=== PATIENT | male | born 1935 | race Caucasian/White ===

== ENCOUNTER 2018-04-11 23:55 | Inpatient (IN) ==
[2018-04-11] MEDS ORDERED: Diphtheria/Tetanus/Pertussis Vaccine Inj 0.5 ML Syringe IM ONE (23:59)
[2018-04-12] MEDS ORDERED: SODIUM CHLORIDE IV.SIG SCH ×2
[2018-04-12] MEDS ORDERED: CEFAZOLIN IV.SIG SCH ×2
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
[2018-04-12 00:19] LABS: Baso # (Auto) 0.2 th/mm3 (0.0-0.2); Baso % (Auto) 0.7 % (0.0-2.0); Eos # (Auto) 0.7 th/mm3 (0.0-0.4); Eos % (Auto) 2.7 % (0.0-4.0); Hematocrit 34.8 % (39.0-51.0); Hemoglobin 11.4 gm/dL (13.0-17.0); Lymph # (Auto) 1.5 th/mm3 (1.0-4.8); Mean Corpuscular HGB Conc 32.8 % (32.0-36.0); Mean Corpuscular Hemoglobin 25.1 pg (27.0-34.0); Mean Corpuscular Volume 76.4 fL (80.0-100.0); Mean Platelet Volume 8.1 fL (7.0-11.0); Mono % (Auto) 11.8 % (0.0-8.0); Neut # (Auto) 20.1 th/mm3 (1.8-7.7); Neut % (Auto) 78.8 % (16.0-70.0); Platelet Count 448 th/mm3 (150-450); Red Blood Count 4.56 mil/mm3 (4.50-5.90); Red Cell Distribution Width 15.4 % (11.6-17.2); White Blood Count 25.5 th/mm3 (4.0-11.0)
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
[2018-04-12 00:28] LABS: Activated Partial Thrombo Time 22.6 sec (24.3-30.1); INR 1.1 Ratio; Prothrombin Time 11.3 sec (9.8-11.6)
[2018-04-12] MEDS ORDERED: HYDROmorphone PF Inj 2 MG/ML Vial IV.PUSH PRN (00:34)
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
[2018-04-12] MEDS: Sod Chloride 0.9% Inj 1,000 ML IV.CONT SCH ×2 (00:49→14:05)
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
[2018-04-12] MEDS ORDERED: Chlorhexidine Gluconate 2% 1 Pack (2 Cloths) TOPICAL PRN (04:00)
[2018-04-12] MEDS: Chlorhexidine Gluconate 2% 1 Pack (2 Cloths) TOPICAL SCH (05:49)
[2018-04-12] MEDS: Docusate Sodium 100 MG Capsule PO SCH ×2 (08:19→22:56)
[2018-04-12] MEDS ORDERED: niCARdipine Inj 25 MG/10 ML Vial ONE (09:28)
[2018-04-12] MEDS ORDERED: Thrombin Topical Soln 5,000 UNIT Vial TOPICAL ONE (09:42)
[2018-04-12] MEDS ORDERED: Lidocaine 1%/Epinephrine 1:100,000 Inj 20 ML Vial ONE (09:42)
[2018-04-12] MEDS ORDERED: Furosemide Inj 0 ML ONE (09:42)
[2018-04-12] MEDS ORDERED: Gelatin Size 100 Topical Foam ONE (09:42)
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
[2018-04-12] MEDS ORDERED: Phenylephrine/NS 1000 MCG/10ML Syringe IV.PUSH ONE (10:15)
[2018-04-12] MEDS ORDERED: Neostigmine Inj 5 MG/5 ML Syringe IV.PUSH ONE (10:15)
[2018-04-12] MEDS ORDERED: Bisacodyl 10 MG Supp RECTAL PRN (10:43)
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
[2018-04-12] MEDS ORDERED: Morphine Inj 4 MG/ML Vial IV.PUSH PRN (12:00)
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
[2018-04-12] MEDS ORDERED: Propofol Inj 500 MG/50 ML Vial ONE (13:13)
[2018-04-12] MEDS ORDERED: fentaNYL Citrate Inj 100 MCG/2 ML Ampul ONE (13:19)
[2018-04-12 13:51] LABS: Hematocrit 31.1 % (39.0-51.0); Mean Corpuscular HGB Conc 32.3 % (32.0-36.0); Mean Corpuscular Hemoglobin 24.9 pg (27.0-34.0); Mean Corpuscular Volume 77.2 fL (80.0-100.0); Platelet Count 403 th/mm3 (150-450); Red Blood Count 4.02 mil/mm3 (4.50-5.90); Red Cell Distribution Width 15.4 % (11.6-17.2); White Blood Count 22.6 th/mm3 (4.0-11.0)
[2018-04-12 14:23] LABS: Anion Gap 7 meq/L (5-15); Blood Urea Nitrogen 14 mg/dL (7-18); Calcium 8.1 mg/dL (8.5-10.1); Carbon Dioxide 28.4 meq/L (21.0-32.0); Chloride 105 meq/L (98-107); Glomerular Filtration Rate Greater Than 89 mL/min (>89); Glucose,Random 135 mg/dL (74-106); Potassium 4.4 meq/L (3.5-5.1); Sodium 140 meq/L (136-145)
[2018-04-12 14:25] LABS: Magnesium 1.9 mg/dL (1.5-2.5)
--- NOTE | 2018-04-12 14:40 | XR ---
EXAM DATE: 04/12/2018 2:31 PM EDT AGE/SEX: 89 years / Male INDICATIONS: Endotracheal tube placement. CLINICAL DATA: This is the patient's subsequent encounter. Patient reports that signs and symptoms h ave been present for 2 days and indicates a pain score of Nonresponsive. MEDICAL/SURGICAL HISTORY: Non-responsive. Non-responsive. COMPARISON: [facility] [place], CHEST 1V SINGLE AP, 04/11/2018. . FINDINGS: Endotracheal tube is present with tip 9 cm above the awa. Coarse bilateral infiltrates are again n oted most confluent in the left lung base and slightly worse than on previous exam. Cardiac contours are grossly unchanged. CONCLUSION: ET tube tip is a bit high. Worsening aeration, particularly in the left base. Electronically signed by: Zak Lamas MD 04/12/2018 2:38 PM EDT
[2018-04-12] MEDS ORDERED: RASS Change Order OTHER ONE (17:00)
[2018-04-12] MEDS: Oral Hygiene Kit OROPHARYNG SCH (17:04)
[2018-04-12] MEDS: Pantoprazole Inj 40 MG Vial IV.PUSH SCH (17:21)
[2018-04-12] MEDS: ceFAZolin Inj 2,000 MG in Sodium Chlor 0.9% Inj 100 ML IV.SIG SCH ×2 (17:22→23:47)
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
[2018-04-12] MEDS: Chlorhexidine 0.12% Oral Kit 15 ML UDC OROPHARYNG SCH (22:56)
[2018-04-12] MEDS: Senna/Docusate Sodium 8.6/50 MG Tablet PO SCH (22:57)
[2018-04-13] MEDS: Sod Chloride 0.9% Inj 1,000 ML IV.CONT SCH ×3 (00:32→18:14)
[2018-04-13] MEDS: Oral Hygiene Kit OROPHARYNG SCH ×4 (00:32→16:31)
[2018-04-13] MEDS: Propofol 1000 mg/100 ml Inj 1,000 MG/100 ML BOTTLE IV.CONT PRN ×3 (01:24→21:07)
--- NOTE | 2018-04-13 04:06 | XR ---
EXAM DATE: 04/13/2018 3:59 AM EDT AGE/SEX: 89 years / Male INDICATIONS: Follow up trauma. CLINICAL DATA: This is the patient's subsequent encounter. Patient reports that signs and symptoms h ave been present for 2 days and indicates a pain score of Nonresponsive. MEDICAL/SURGICAL HISTORY: Chronic obstructive pulmonary disease. None. COMPARISON: [facility], CHEST 1V SINGLE AP, 04/12/2018. . FINDINGS: ET tube tip well above the awa. Gastric tube traverses the [id number]. Patchy infiltrates in th e central lower lungs, slightly improving left lower lung compared to yesterday. Both hemidiaphragms well delineated. The heart is normal in size. CONCLUSION: 1. ET tube in good position. 2. Slight improvement in left basilar infiltrate. Electronically signed by: Petey Velasquez MD 04/13/2018 4:04 AM EDT
[2018-04-13] MEDS: Chlorhexidine Gluconate 2% 1 Pack (2 Cloths) TOPICAL SCH (04:21)
[2018-04-13] MEDS: Norepinephrine Inj 4 MG in Sodium Chlor 0.9% Inj 246 ML IV.SIG PRN ×2 (05:06→16:33)
[2018-04-13 05:41] LABS: Baso % (Auto) 0.1 % (0.0-2.0); Hematocrit 27.8 % (39.0-51.0); Hemoglobin 8.9 gm/dL (13.0-17.0); Lymph # (Auto) 0.8 th/mm3 (1.0-4.8); Lymph % (Auto) 3.3 % (9.0-44.0); Mean Corpuscular HGB Conc 32.2 % (32.0-36.0); Mean Corpuscular Hemoglobin 24.8 pg (27.0-34.0); Mean Corpuscular Volume 76.9 fL (80.0-100.0); Mean Platelet Volume 8.2 fL (7.0-11.0); Mono # (Auto) 3.9 th/mm3 (0.0-0.9); Neut # (Auto) 19.9 th/mm3 (1.8-7.7); Neut % (Auto) 80.6 % (16.0-70.0); Platelet Count 375 th/mm3 (150-450); Red Blood Count 3.61 mil/mm3 (4.50-5.90); Red Cell Distribution Width 15.4 % (11.6-17.2); White Blood Count 24.7 th/mm3 (4.0-11.0)
[2018-04-13] MEDS ORDERED: Sodium Bicarbonate 8.4% Inj 50 MEQ/50 ML Syringe ONE (05:41)
[2018-04-13] MEDS ORDERED: WATER ONE (05:41)
[2018-04-13] MEDS ORDERED: DEXTROSE 50% ONE (05:41)
[2018-04-13 05:55] LABS: Anion Gap 9 meq/L (5-15); Blood Urea Nitrogen 15 mg/dL (7-18); Calcium 7.8 mg/dL (8.5-10.1); Carbon Dioxide 29.1 meq/L (21.0-32.0); Chloride 104 meq/L (98-107); Glomerular Filtration Rate Greater Than 89 mL/min (>89); Glucose,Random 127 mg/dL (74-106); Phosphorus 2.6 mg/dL (2.5-4.9); Potassium 4.2 meq/L (3.5-5.1); Sodium 142 meq/L (136-145)
[2018-04-13 06:46] LABS: ABG PCO2 45 mmHg (38-42); ABG PO2 146 mmHg (61-120)
[2018-04-13] MEDS: ceFAZolin Inj 2,000 MG in Sodium Chlor 0.9% Inj 100 ML IV.SIG SCH (08:00)
[2018-04-13] MEDS: Docusate Sodium 100 MG Capsule PO SCH ×2 (08:02→21:12)
[2018-04-13] MEDS: Chlorhexidine 0.12% Oral Kit 15 ML UDC OROPHARYNG SCH ×2 (08:02→21:08)
[2018-04-13] MEDS: Senna/Docusate Sodium 8.6/50 MG Tablet PO SCH ×2 (08:02→21:12)
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
[2018-04-13] MEDS ORDERED: Sod Chloride 0.9% Inj 1,000 ML IV.SIG ONE (13:21)
[2018-04-13] MEDS ORDERED: Lidocaine PF 1% Inj 5 ML Syringe INFILTRATN ONE (13:21)
[2018-04-13] MEDS ORDERED: Glycopyrrolate Inj 1 MG/5 ML Syringe IV.PUSH ONE (13:21)
[2018-04-13] MEDS ORDERED: Phenylephrine/NS 1000 MCG/10ML Syringe IV.PUSH ONE (13:21)
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
[2018-04-13] MEDS: Pantoprazole Inj 40 MG Vial IV.PUSH SCH (13:42)
--- NOTE | 2018-04-13 13:43 | ECG ---
Date Performed: 04/12/2018 Time Performed: 13:34:50 PTAGE: 89 years EKG: Sinus rhythm with PVC(s). Rightward axis rSr'(V1) - probable normal variant Lateral ST-T changes may be due to my ocardial ischemia Abnormal ECG NO PREVIOUS TRACING DOCTOR: Hui Palacio Interpretating Date/Time 04/13/2018 13:41:57
[2018-04-13] MEDS ORDERED: Lidocaine 1%/Epinephrine 1:100,000 Inj 30 ML Vial ONE (14:01)
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
--- NOTE | 2018-04-13 15:19 | P.PN ---
Subjective Interval history: s/p enucleation of right eye. Physical Exam Vital signs: Vital Signs 04/12/18 16:00 04/12/18 16:52 04/12/18 19:00 Temperature 99.8 F H Pulse Rate 60 Respiratory Rate 16 15 Blood Pressure 122/56 L Pulse Oximetry 100 100 100 04/12/18 20:00 04/12/18 21:02 04/12/18 22:00 Temperature 99.7 F H Pulse Rate 70 84 Respiratory Rate 14 15 Blood Pressure 128/60 Pulse Oximetry 100 100 04/12/18 23:00 04/12/18 23:52 04/13/18 00:00 Temperature 99.5 F Pulse Rate 59 L Respiratory Rate 15 15 Blood Pressure 128/93 H Pulse Oximetry 100 100 100 04/13/18 01:00 04/13/18 02:00 04/13/18 03:00 Temperature Pulse Rate 60 Respiratory Rate Blood Pressure Pulse Oximetry 100 100 04/13/18 04:00 04/13/18 06:00 04/13/18 07:58 Temperature 99.9 F H Pulse Rate 60 58 L Respiratory Rate 14 14 Blood Pressure 114/46 L Pulse Oximetry 100 100 04/13/18 08:00 04/13/18 09:27 04/13/18 10:00 Temperature 99.9 F H Pulse Rate 64 74 64 Respiratory Rate 14 17 Blood Pressure 111/56 L Pulse Oximetry 100 04/13/18 11:59 04/13/18 12:00 04/13/18 13:00 Temperature 98.6 F Pulse Rate 59 L Respiratory Rate 15 14 Blood Pressure 113/58 L Pulse Oximetry 100 100 100 04/13/18 13:38 Temperature Pulse Rate Respiratory Rate Blood Pressure Pulse Oximetry 100 Intake & Output 04/12/18 04/13/18 04/13/18 18:59 06:59 18:59 Intake Total 2220 / 2220 2120 / 2120 220 / 220 Output Total 1050 / 1050 1060 / 1060 Balance 1170 / 1170 1060 / 1060 220 / 220 Weight 68.4 kg Intake: IV 1220 / 1220 2120 / 2120 220 / 220 NS + KCl 20 mEq Inj 1,000 ML @ 1000 / 1000 100 mls/hr IV.CONT .Q10H [facility] Rx #:[id number] Diprivan 1000 mg/100 ml Inj 1, 100 / 100 000 mg In 100 ml @ 5 MCG/KG/MIN 2.022 mls/hr IV.CONT TITRATE PRN Rx#:[id number] NS Inj 1,000 ML @ 100 mls/hr IV 1000 / 1000 1000 / 1000 .CONT .Q10H [facility] Rx#:[id number] Ancef Inj 1,000 MG In NS Inj 100 / 100 100 ML @ 200 mls/hr IV.SIG Q8H [facility] Rx#:[id number] Ancef Inj 2,000 MG In NS Inj 120 / 120 120 / 120 120 / 120 100 ML @ 240 mls/hr IV.SIG Q8H [facility] Rx#:[id number] Oral 0 / 0 Anesthesia Amount 1000 / 1000 Output: Estimated Blood Loss 100 / 100 Urine Amount (Catheter) 950 / 950 775 / 775 Indwelling Urethral Catheter 950 / 950 775 / 775 Gastric Drainage 200 / 200 Orogastric Tube 200 / 200 Wound Drainage 85 / 85 # 1 Right Head YUDELKA Drain 40 / 40 # 2 Right Head YUDELKA Drain 45 / 45 Other: Date of Last Bowel Movement 04/10/18 04/10/18 04/10/18 - Detailed Eye Exam Comments: Eye patch and shield over right eye - Urinary Catheter Management Indwelling Urethral Catheter Cath placed during this visit: yes Reason for continuing: Hourly intake/output Insertion date: 04/12/18 Insertion time: 10:15 Results - Labs CBC & Chem 7: 04/13/18 05:20 04/13/18 05:20 Laboratory Results - last 24 hr 04/13/18 04/13/18 04/13/18 05:20 05:20 06:36 WBC 24.7 H RBC 3.61 L Hgb 8.9 L Hct 27.8 L MCV 76.9 L MCH 24.8 L MCHC 32.2 RDW 15.4 Plt Count 375 MPV 8.2 Prelim Diff (Auto) Slide review pending Neut % (Auto) 80.6 H Lymph % (Auto) 3.3 L [place] % (Auto) 16.0 H Eos % (Auto) 0.0 Baso % (Auto) 0.1 Neut # (Auto) 19.9 H Lymph # (Auto) 0.8 L [place] # (Auto) 3.9 H Eos # (Auto) 0.0 Baso # (Auto) 0.0 WBC Differential . Diff Scan Auto diff confirmed Differential Comment . Puncture Site [place] Patient Temperature 98.6 O2 Saturation 97 ABG pH 7.43 H ABG pCO2 45 H ABG pO2 146 H ABG HCO3 29 H ABG O2 Content 12.6 ABG Base Excess 5.0 H ABG Methemoglobin 1.1 Hemoglobin 9.0 L Carboxyhemoglobin 1.5 O2 Delivery Device Vent Vent Setting See comments Inspired O2 40 Critical Value No Sodium 142 Potassium 4.2 Chloride 104 Carbon Dioxide 29.1 Anion Gap 9 BUN 15 Creatinine 0.59 L Estimated GFR Greater than 89 Random Glucose 127 H Calcium 7.8 L Phosphorus 2.6 - Imaging Impressions Chest X-Ray 04/13/18 06:00 CONCLUSION: 1. ET tube in good position. 2. Slight improvement in left basilar infiltrate. 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 Keep eye patch/shield over right eye.
[2018-04-14] MEDS: Oral Hygiene Kit OROPHARYNG SCH ×4 (00:56→15:27)
[2018-04-14] MEDS: Sod Chloride 0.9% Inj 1,000 ML IV.CONT SCH (03:02)
[2018-04-14] MEDS: Propofol 1000 mg/100 ml Inj 1,000 MG/100 ML BOTTLE IV.CONT PRN ×3 (04:00→20:18)
[2018-04-14] MEDS: Chlorhexidine Gluconate 2% 1 Pack (2 Cloths) TOPICAL SCH (04:01)
[2018-04-14 04:22] LABS: Hematocrit 25.4 % (39.0-51.0); Hemoglobin 8.2 gm/dL (13.0-17.0); Mean Corpuscular HGB Conc 32.3 % (32.0-36.0); Mean Corpuscular Hemoglobin 24.7 pg (27.0-34.0); Mean Corpuscular Volume 76.6 fL (80.0-100.0); Mean Platelet Volume 8.1 fL (7.0-11.0); Platelet Count 350 th/mm3 (150-450); Red Blood Count 3.32 mil/mm3 (4.50-5.90); Red Cell Distribution Width 15.5 % (11.6-17.2); White Blood Count 21.8 th/mm3 (4.0-11.0)
[2018-04-14 04:53] LABS: Alanine Aminotransferase 13 U/L (12-78); Albumin 2.2 g/dL (3.4-5.0); Anion Gap 7 meq/L (5-15); Aspartate Aminotransferase 15 U/L (15-37); Blood Urea Nitrogen 16 mg/dL (7-18); Calcium 7.8 mg/dL (8.5-10.1); Carbon Dioxide 30.8 meq/L (21.0-32.0); Chloride 103 meq/L (98-107); Glomerular Filtration Rate Greater Than 89 mL/min (>89); Glucose,Random 107 mg/dL (74-106); Potassium 4.1 meq/L (3.5-5.1); Sodium 141 meq/L (136-145)
[2018-04-14 04:55] LABS: Alkaline Phosphatase 57 U/L (45-117); Total Protein 6.1 g/dL (6.4-8.2)
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
[2018-04-14 06:35] LABS: ABG PCO2 43 mmHg (38-42); ABG PO2 92 mmHg (61-120)
[2018-04-14 08:13] LABS: Lymphocytes 2 % (9-44); Monocytes 2 % (0-8)
[2018-04-14 08:14] LABS: Acanthocytes Occ; Platelet Estimate Normal (Normal); Platelet Morphology Normal (Normal)
[2018-04-14] MEDS: Chlorhexidine 0.12% Oral Kit 15 ML UDC OROPHARYNG SCH ×2 (08:48→20:05)
[2018-04-14] MEDS: Docusate Sodium 100 MG Capsule PO SCH ×2 (08:48→20:18)
[2018-04-14] MEDS: Senna/Docusate Sodium 8.6/50 MG Tablet PO SCH ×2 (08:48→20:18)
[2018-04-14] MEDS: fentaNYL 10 mcg/mL Premix Drip 2,500 MCG/250 ML BAG IV.SIG PRN (09:11)
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
[2018-04-14] MEDS: Pantoprazole Inj 40 MG Vial IV.PUSH SCH (13:36)
[2018-04-15 04:06] LABS: Baso # (Auto) 0.1 th/mm3 (0.0-0.2); Baso % (Auto) 0.4 % (0.0-2.0); Eos % (Auto) 0.1 % (0.0-4.0); Hemoglobin 8.4 gm/dL (13.0-17.0); Lymph # (Auto) 0.6 th/mm3 (1.0-4.8); Mean Corpuscular HGB Conc 33.4 % (32.0-36.0); Mean Corpuscular Hemoglobin 25.2 pg (27.0-34.0); Mean Corpuscular Volume 75.3 fL (80.0-100.0); Mean Platelet Volume 8.3 fL (7.0-11.0); Mono # (Auto) 2.1 th/mm3 (0.0-0.9); Mono % (Auto) 11.4 % (0.0-8.0); Neut # (Auto) 15.8 th/mm3 (1.8-7.7); Neut % (Auto) 85.1 % (16.0-70.0); Platelet Count 321 th/mm3 (150-450); Red Blood Count 3.32 mil/mm3 (4.50-5.90); Red Cell Distribution Width 15.6 % (11.6-17.2); White Blood Count 18.6 th/mm3 (4.0-11.0)
[2018-04-15] MEDS: Oral Hygiene Kit OROPHARYNG SCH ×4 (04:23→16:26)
[2018-04-15] MEDS: Chlorhexidine Gluconate 2% 1 Pack (2 Cloths) TOPICAL SCH (04:24)
[2018-04-15] MEDS: Propofol 1000 mg/100 ml Inj 1,000 MG/100 ML BOTTLE IV.CONT PRN ×2 (04:24→18:00)
[2018-04-15 04:54] LABS: Alanine Aminotransferase 30 U/L (12-78); Albumin 2.1 g/dL (3.4-5.0); Alkaline Phosphatase 104 U/L (45-117); Anion Gap 6 meq/L (5-15); Aspartate Aminotransferase 43 U/L (15-37); Blood Urea Nitrogen 20 mg/dL (7-18); Calcium 7.8 mg/dL (8.5-10.1); Carbon Dioxide 33.6 meq/L (21.0-32.0); Chloride 101 meq/L (98-107); Glomerular Filtration Rate Greater Than 89 mL/min (>89); Glucose,Random 113 mg/dL (74-106); Potassium 3.8 meq/L (3.5-5.1); Sodium 141 meq/L (136-145)
[2018-04-15 05:40] LABS: ABG Base Excess 8.3 mmol/L (-2-2); ABG PCO2 48 mmHg (38-42); ABG PO2 76 mmHg (61-120)
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
[2018-04-15] MEDS: Senna/Docusate Sodium 8.6/50 MG Tablet PO SCH ×2 (08:24→20:00)
[2018-04-15] MEDS: Docusate Sodium 100 MG Capsule PO SCH ×2 (08:24→20:00)
[2018-04-15] MEDS: Chlorhexidine 0.12% Oral Kit 15 ML UDC OROPHARYNG SCH ×2 (08:24→21:29)
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
[2018-04-15] MEDS ORDERED: levETIRAcetam 500mg/100mL Inj 100 ML IV.SIG SCH (12:00)
[2018-04-15] MEDS: Pantoprazole Inj 40 MG Vial IV.PUSH SCH (13:08)
[2018-04-15] MEDS: Sod Chloride 0.9% Inj 1,000 ML IV.CONT SCH (18:02)
[2018-04-15] MEDS: fentaNYL 10 mcg/mL Premix Drip 2,500 MCG/250 ML BAG IV.SIG PRN (20:04)
[2018-04-16] MEDS: Oral Hygiene Kit OROPHARYNG SCH ×4 (00:39→19:41)
[2018-04-16] MEDS: Acetaminophen 325 MG Tablet PO PRN ×2 (01:06→20:25)
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
[2018-04-16 05:43] LABS: Baso % (Auto) 0.1 % (0.0-2.0); Eos % (Auto) 0.2 % (0.0-4.0); Hematocrit 24.1 % (39.0-51.0); Hemoglobin 8.1 gm/dL (13.0-17.0); Lymph # (Auto) 0.7 th/mm3 (1.0-4.8); Lymph % (Auto) 3.4 % (9.0-44.0); Mean Corpuscular HGB Conc 33.5 % (32.0-36.0); Mean Corpuscular Hemoglobin 25.3 pg (27.0-34.0); Mean Corpuscular Volume 75.4 fL (80.0-100.0); Mean Platelet Volume 8.7 fL (7.0-11.0); Mono # (Auto) 1.9 th/mm3 (0.0-0.9); Mono % (Auto) 9.8 % (0.0-8.0); Neut # (Auto) 17.1 th/mm3 (1.8-7.7); Neut % (Auto) 86.5 % (16.0-70.0); Platelet Count 312 th/mm3 (150-450); Red Blood Count 3.19 mil/mm3 (4.50-5.90); Red Cell Distribution Width 15.2 % (11.6-17.2); White Blood Count 19.8 th/mm3 (4.0-11.0)
[2018-04-16] MEDS: Chlorhexidine Gluconate 2% 1 Pack (2 Cloths) TOPICAL SCH (06:00)
[2018-04-16 06:03] LABS: Albumin 1.9 g/dL (3.4-5.0); Anion Gap 4 meq/L (5-15); Aspartate Aminotransferase 57 U/L (15-37); Blood Urea Nitrogen 26 mg/dL (7-18); Calcium 7.6 mg/dL (8.5-10.1); Carbon Dioxide 34.9 meq/L (21.0-32.0); Chloride 103 meq/L (98-107); Glomerular Filtration Rate Greater Than 89 mL/min (>89); Glucose,Random 147 mg/dL (74-106); Potassium 4.1 meq/L (3.5-5.1); Sodium 142 meq/L (136-145)
[2018-04-16 06:04] LABS: Alanine Aminotransferase 54 U/L (12-78)
[2018-04-16 06:06] LABS: Alkaline Phosphatase 133 U/L (45-117); Total Protein 6.2 g/dL (6.4-8.2)
[2018-04-16 06:12] LABS: ABG Base Excess 6.5 mmol/L (-2-2); ABG PCO2 45 mmHg (38-42); ABG PO2 98 mmHg (61-120)
[2018-04-16] MEDS: Chlorhexidine 0.12% Oral Kit 15 ML UDC OROPHARYNG SCH ×2 (10:14→20:26)
[2018-04-16] MEDS: Docusate Sodium 100 MG Capsule PO SCH ×2 (10:14→20:25)
[2018-04-16] MEDS: Senna/Docusate Sodium 8.6/50 MG Tablet PO SCH ×2 (10:14→20:25)
[2018-04-16] MEDS: Pantoprazole Inj 40 MG Vial IV.PUSH SCH (13:29)
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
[2018-04-16] MEDS ORDERED: Lidocaine 1%/Epinephrine 1:100,000 Inj 50 ML Vial INFILTRATN ONE (16:02)
[2018-04-16] MEDS ORDERED: Lidocaine 1%/Epinephrine 1:100,000 Inj 30 ML Vial ONE (16:21)
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
[2018-04-17] MEDS: Oral Hygiene Kit OROPHARYNG SCH ×4 (00:37→16:20)
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
[2018-04-17 05:52] LABS: Baso # (Auto) 0.1 th/mm3 (0.0-0.2); Baso % (Auto) 0.6 % (0.0-2.0); Eos # (Auto) 0.1 th/mm3 (0.0-0.4); Eos % (Auto) 0.6 % (0.0-4.0); Hematocrit 27.1 % (39.0-51.0); Hemoglobin 8.9 gm/dL (13.0-17.0); Lymph # (Auto) 0.9 th/mm3 (1.0-4.8); Mean Corpuscular HGB Conc 32.9 % (32.0-36.0); Mean Corpuscular Hemoglobin 25.3 pg (27.0-34.0); Mean Corpuscular Volume 76.8 fL (80.0-100.0); Mean Platelet Volume 8.7 fL (7.0-11.0); Mono # (Auto) 1.7 th/mm3 (0.0-0.9); Mono % (Auto) 9.1 % (0.0-8.0); Neut # (Auto) 15.9 th/mm3 (1.8-7.7); Neut % (Auto) 84.7 % (16.0-70.0); Platelet Count 386 th/mm3 (150-450); Red Blood Count 3.53 mil/mm3 (4.50-5.90); Red Cell Distribution Width 15.3 % (11.6-17.2); White Blood Count 18.8 th/mm3 (4.0-11.0)
[2018-04-17 06:00] LABS: ABG PCO2 49 mmHg (38-42); ABG PO2 71 mmHg (61-120)
[2018-04-17 06:35] LABS: Alanine Aminotransferase 94 U/L (12-78); Anion Gap 5 meq/L (5-15); Aspartate Aminotransferase 108 U/L (15-37); Blood Urea Nitrogen 25 mg/dL (7-18); Calcium 8.1 mg/dL (8.5-10.1); Carbon Dioxide 34.2 meq/L (21.0-32.0); Chloride 103 meq/L (98-107); Glomerular Filtration Rate Greater Than 89 mL/min (>89); Glucose,Random 133 mg/dL (74-106); Potassium 4.3 meq/L (3.5-5.1); Sodium 142 meq/L (136-145)
[2018-04-17 06:38] LABS: Alkaline Phosphatase 173 U/L (45-117); Total Protein 6.8 g/dL (6.4-8.2)
[2018-04-17] MEDS: Chlorhexidine 0.12% Oral Kit 15 ML UDC OROPHARYNG SCH (08:00)
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
[2018-04-17] MEDS: fentaNYL 10 mcg/mL Premix Drip 2,500 MCG/250 ML BAG IV.SIG PRN (09:27)
[2018-04-17] MEDS: Senna/Docusate Sodium 8.6/50 MG Tablet PO SCH ×2 (09:27→20:35)
[2018-04-17] MEDS: Docusate Sodium 100 MG Capsule PO SCH ×2 (09:27→20:34)
[2018-04-17] MEDS: Morphine Sulfate Inj 2 MG/ML Vial IV.PUSH PRN ×2 (10:50→14:53)
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
[2018-04-17] MEDS: Pantoprazole Inj 40 MG Vial IV.PUSH SCH (13:30)
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
--- NOTE | 2018-04-17 19:12 | P.PN ---
Subjective Interval history: Pt extubated - does not want to answer questions or commands. Physical Exam Vital signs: Vital Signs 04/16/18 20:00 04/16/18 20:09 04/16/18 22:00 Temperature 101.1 F H Pulse Rate 64 67 65 Respiratory Rate 17 17 Blood Pressure 119/58 L Pulse Oximetry 97 96 04/17/18 00:00 04/17/18 01:00 04/17/18 01:10 Temperature 98.8 F Pulse Rate 62 Respiratory Rate 12 14 Blood Pressure 111/62 Pulse Oximetry 97 98 98 04/17/18 02:00 04/17/18 04:00 04/17/18 04:14 Temperature 98.9 F Pulse Rate 65 60 59 L Respiratory Rate 12 13 Blood Pressure 109/55 L Pulse Oximetry 97 98 04/17/18 06:00 04/17/18 08:00 04/17/18 09:03 Temperature 99.1 F Pulse Rate 62 62 58 L Respiratory Rate 18 13 Blood Pressure 113/63 Pulse Oximetry 100 99 04/17/18 10:00 04/17/18 11:00 04/17/18 12:00 Temperature 98.8 F Pulse Rate 63 56 L Respiratory Rate 12 12 Blood Pressure 127/59 L Pulse Oximetry 95 04/17/18 14:00 04/17/18 15:10 04/17/18 16:00 Temperature 99.4 F Pulse Rate 67 76 Respiratory Rate 18 15 Blood Pressure 147/69 H Pulse Oximetry 94 L 04/17/18 18:00 Temperature Pulse Rate 79 Respiratory Rate Blood Pressure Pulse Oximetry Intake & Output 04/17/18 04/17/18 04/18/18 06:59 18:59 06:59 Intake Total 1332 / 1332 105 / 105 Output Total 1250 / 1250 1450 / 1450 Balance 82 / 82 -1345 / -1345 Weight 65.998 kg Intake: IV 560 / 560 105 / 105 Diprivan 1000 mg/100 ml Inj 1, 100 / 100 000 mg In 100 ml @ 5 MCG/KG/MIN 2.022 mls/hr IV.CONT TITRATE PRN Rx#:[id number] fentaNYL 10 mcg/mL Premix Drip 250 / 250 2,500 mcg In 250 ml @ 50 MCG/HR 5 mls/hr IV.SIG TITRATE PRN Rx #:[id number] Keppra Inj 500 MG In NS Inj 100 210 / 210 105 / 105 ML @ 400 mls/hr IV.SIG Q12H [facility] Rx#:[id number] Oral 0 / 0 Tube Feeding 672 / 672 Tube Irrigant 100 / 100 Output: Urine Amount (Catheter) 1250 / 1250 1450 / 1450 Indwelling Urethral Catheter 1250 / 1250 1450 / 1450 Other: Date of Last Bowel Movement 04/17/18 04/17/18 # Bowel Movements 1 1 # Incontinent Bowel Movements 1 - Detailed Eye Exam Comments: Va unable EOM unable CVF unable Pupils 2-1 OS Anterior exam OD - normal eyelid, conjunctival sutures intact OS - normal eyelid, C/S W&Q, K clear, AC deep, pupil round, lens clear - Urinary Catheter Management Indwelling Urethral Catheter Cath placed during this visit: yes Reason for continuing: Hourly intake/output Insertion date: 04/12/18 Insertion time: 10:15 Results - Labs CBC & Chem 7: 04/17/18 05:15 04/17/18 05:15 Laboratory Results - last 24 hr 04/17/18 04/17/18 04/17/18 05:15 05:15 05:50 WBC 18.8 H RBC 3.53 L Hgb 8.9 L Hct 27.1 L MCV 76.8 L MCH 25.3 L MCHC 32.9 RDW 15.3 Plt Count 386 MPV 8.7 Neut % (Auto) 84.7 H Lymph % (Auto) 5.0 L Metcalfe % (Auto) 9.1 H Eos % (Auto) 0.6 Baso % (Auto) 0.6 Neut # (Auto) 15.9 H Lymph # (Auto) 0.9 L [place]calfe # (Auto) 1.7 H Eos # (Auto) 0.1 Baso # (Auto) 0.1 WBC Differential . Differential Comment Auto diff final Puncture Site Left radial Patient Temperature 98.6 O2 Saturation 93 ABG pH 7.45 H ABG pCO2 49 H ABG pO2 71 ABG HCO3 33 H ABG O2 Content 12.6 ABG Base Excess 9.0 H ABG Methemoglobin 1.0 Haseeb Test Present Hemoglobin 9.6 L Carboxyhemoglobin 1.5 O2 Delivery Device Ventilator Vent Setting 8ps 5peep Inspired O2 30 Critical Value No Sodium 142 Potassium 4.3 Chloride 103 Carbon Dioxide 34.2 H Anion Gap 5 BUN 25 H Creatinine 0.58 L Estimated GFR Greater than 89 Random Glucose 133 H Calcium 8.1 L Total Bilirubin 0.5 AST 108 H ALT 94 H Alkaline Phosphatase 173 H Total Protein 6.8 D Albumin 2.0 L - Imaging Impressions Chest X-Ray 04/17/18 06:00 CONCLUSION: Endotracheal tube and nasogastric tube unchanged. Stable to improved left basilar airspace disease. 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 Eye patch/shield changed. TobraDex ointment and bandage change to right orbit q3 days.
[2018-04-18] MEDS: Oral Hygiene Kit OROPHARYNG SCH ×5 (00:20→23:27)
[2018-04-18] MEDS: Morphine Sulfate Inj 2 MG/ML Vial IV.PUSH PRN ×4 (00:48→18:32)
[2018-04-18 03:50] LABS: Baso # (Auto) 0.1 th/mm3 (0.0-0.2); Baso % (Auto) 0.2 % (0.0-2.0); Hematocrit 29.9 % (39.0-51.0); Hemoglobin 9.8 gm/dL (13.0-17.0); Lymph # (Auto) 0.6 th/mm3 (1.0-4.8); Lymph % (Auto) 2.1 % (9.0-44.0); Mean Corpuscular HGB Conc 32.6 % (32.0-36.0); Mean Corpuscular Hemoglobin 24.5 pg (27.0-34.0); Mean Corpuscular Volume 75.1 fL (80.0-100.0); Mean Platelet Volume 8.3 fL (7.0-11.0); Mono # (Auto) 2.7 th/mm3 (0.0-0.9); Mono % (Auto) 9.3 % (0.0-8.0); Neut # (Auto) 25.9 th/mm3 (1.8-7.7); Neut % (Auto) 88.4 % (16.0-70.0); Platelet Count 526 th/mm3 (150-450); Red Blood Count 3.99 mil/mm3 (4.50-5.90); White Blood Count 29.3 th/mm3 (4.0-11.0)
[2018-04-18 04:09] LABS: Albumin 2.2 g/dL (3.4-5.0); Anion Gap 9 meq/L (5-15); Aspartate Aminotransferase 70 U/L (15-37); Blood Urea Nitrogen 25 mg/dL (7-18); Calcium 8.8 mg/dL (8.5-10.1); Carbon Dioxide 28.8 meq/L (21.0-32.0); Chloride 103 meq/L (98-107); Glomerular Filtration Rate Greater Than 89 mL/min (>89); Glucose,Random 104 mg/dL (74-106); Sodium 141 meq/L (136-145)
[2018-04-18 04:12] LABS: Alanine Aminotransferase 108 U/L (12-78); Alkaline Phosphatase 195 U/L (45-117); Total Protein 7.5 g/dL (6.4-8.2)
[2018-04-18 04:34] LABS: Platelet Morphology Normal (Normal)
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
[2018-04-18] MEDS ORDERED: Vancomycin Consult Pharmacy 1 EACH OTHER PRN (10:15)
[2018-04-18] MEDS ORDERED: Vancomycin Inj 1,000 MG in Sodium Chlor 0.9% Inj 250 ML IV.SIG SCH (11:00)
[2018-04-18] MEDS: Senna/Docusate Sodium 8.6/50 MG Tablet PO SCH ×2 (11:19→20:06)
[2018-04-18] MEDS: Docusate Sodium 100 MG Capsule PO SCH ×2 (11:19→20:06)
[2018-04-18] MEDS: Levofloxacin 500 mg Premix Inj 500 MG/100 ML PIGGYBACK IV.SIG SCH (11:25)
[2018-04-18] MEDS: Sod Chloride 0.9% Inj 1,000 ML IV.CONT SCH (11:27)
[2018-04-18] MEDS ORDERED: Vancomycin Inj 1,500 MG in Sodium Chlor 0.9% Inj 500 ML IV.SIG ONE (12:00)
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
[2018-04-18] MEDS: Pantoprazole Inj 40 MG Vial IV.PUSH SCH (17:13)
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
[2018-04-18] MEDS: Vancomycin Inj 750 MG in Sodium Chlor 0.9% Inj 250 ML IV.SIG SCH (20:07)
[2018-04-19] MEDS: Morphine Sulfate Inj 2 MG/ML Vial IV.PUSH PRN ×5 (02:08→23:13)
[2018-04-19 04:07] LABS: Baso # (Auto) 0.1 th/mm3 (0.0-0.2); Baso % (Auto) 0.2 % (0.0-2.0); Hemoglobin 9.9 gm/dL (13.0-17.0); Lymph # (Auto) 0.9 th/mm3 (1.0-4.8); Lymph % (Auto) 2.8 % (9.0-44.0); Mean Corpuscular Hemoglobin 24.4 pg (27.0-34.0); Mean Corpuscular Volume 76.1 fL (80.0-100.0); Mean Platelet Volume 8.3 fL (7.0-11.0); Mono # (Auto) 2.8 th/mm3 (0.0-0.9); Mono % (Auto) 8.6 % (0.0-8.0); Neut # (Auto) 29.3 th/mm3 (1.8-7.7); Neut % (Auto) 88.4 % (16.0-70.0); Platelet Count 562 th/mm3 (150-450); Red Blood Count 4.08 mil/mm3 (4.50-5.90); Red Cell Distribution Width 15.5 % (11.6-17.2); White Blood Count 33.1 th/mm3 (4.0-11.0)
[2018-04-19] MEDS: Sod Chloride 0.9% Inj 1,000 ML IV.CONT SCH ×2 (04:22→22:56)
[2018-04-19] MEDS: Oral Hygiene Kit OROPHARYNG SCH ×4 (04:23→23:22)
[2018-04-19 04:30] LABS: Albumin 1.9 g/dL (3.4-5.0); Anion Gap 11 meq/L (5-15); Aspartate Aminotransferase 34 U/L (15-37); Blood Urea Nitrogen 30 mg/dL (7-18); Calcium 8.7 mg/dL (8.5-10.1); Carbon Dioxide 24.5 meq/L (21.0-32.0); Chloride 108 meq/L (98-107); Glomerular Filtration Rate Greater Than 89 mL/min (>89); Glucose,Random 104 mg/dL (74-106); Potassium 3.7 meq/L (3.5-5.1); Sodium 143 meq/L (136-145)
[2018-04-19 04:32] LABS: Alanine Aminotransferase 70 U/L (12-78)
[2018-04-19 04:33] LABS: Alkaline Phosphatase 168 U/L (45-117); Total Protein 7.3 g/dL (6.4-8.2)
[2018-04-19 05:19] LABS: Lymphocytes 3 % (9-44); Metamyelocytes 1 % (0-1); Monocytes 4 % (0-8)
[2018-04-19 05:20] LABS: Dohle Bodies Present; Platelet Morphology Normal (Normal)
[2018-04-19 05:22] LABS: Acanthocytes Occ; Ovalocytes 1+
[2018-04-19] MEDS: Piperacil/Tazo 4.5 GM Premix 4.5 GM/100 ML BAG IV.SIG SCH ×3 (06:34→18:01)
--- NOTE | 2018-04-19 07:11 | XR ---
EXAM DATE: 04/19/2018 6:58 AM EDT AGE/SEX: 82 years / Male INDICATIONS: Cough. CLINICAL DATA: This is the patient's subsequent encounter. Patient reports that signs and symptoms h ave been present for 1 week and indicates a pain score of Nonresponsive. MEDICAL/SURGICAL HISTORY: Non-responsive. Craniotomy. Kyphoplasty. COMPAR[place]: [facility] [place] 1[place] SINGLE AP, 04/18/2018. . FINDINGS: There is persistent fairly diffuse bilateral coarse interstitial infiltrate, most notably in the left lung base. Apical probable pleural-parenchymal scarring again noted bilaterally. Cardiac contours ar e grossly unchanged. CONCLUSION: Persistent bilateral infiltrates Electronically signed by: Zak Lamas MD 04/19/2018 7:10 AM EDT
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
[2018-04-19] MEDS: Vancomycin Inj 750 MG in Sodium Chlor 0.9% Inj 250 ML IV.SIG SCH ×2 (09:15→22:57)
[2018-04-19] MEDS: Senna/Docusate Sodium 8.6/50 MG Tablet PO SCH ×2 (11:25→22:36)
[2018-04-19] MEDS: Docusate Sodium 100 MG Capsule PO SCH ×2 (11:25→22:36)
[2018-04-19] MEDS: clonazePAM 1 MG Tablet PO SCH ×2 (11:26→22:36)
[2018-04-19] MEDS: Levofloxacin 500 mg Premix Inj 500 MG/100 ML PIGGYBACK IV.SIG SCH (11:29)
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
[2018-04-19] MEDS: Pantoprazole Inj 40 MG Vial IV.PUSH SCH (14:06)
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
[2018-04-19] MEDS ORDERED: Pharmacy Ordered Lab Info OTHER SCH (20:45)
[2018-04-20] MEDS: Piperacil/Tazo 4.5 GM Premix 4.5 GM/100 ML BAG IV.SIG SCH ×5 (00:59→23:27)
[2018-04-20] MEDS: Oral Hygiene Kit OROPHARYNG SCH ×4 (04:53→23:24)
[2018-04-20] MEDS: Morphine Sulfate Inj 2 MG/ML Vial IV.PUSH PRN ×2 (04:57→21:00)
[2018-04-20] MEDS ORDERED: Naloxone Inj 0.4 MG/ML Vial IV.PUSH PRN (07:56)
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
[2018-04-20] MEDS: Vancomycin Inj 750 MG in Sodium Chlor 0.9% Inj 250 ML IV.SIG SCH ×2 (09:15→21:12)
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
[2018-04-20] MEDS: Levofloxacin 500 mg Premix Inj 500 MG/100 ML PIGGYBACK IV.SIG SCH (18:05)
[2018-04-20] MEDS: Senna/Docusate Sodium 8.6/50 MG Tablet PO SCH ×2 (18:09→21:11)
[2018-04-20] MEDS: clonazePAM 1 MG Tablet PO SCH ×2 (18:10→21:11)
[2018-04-20] MEDS: Docusate Sodium 100 MG Capsule PO SCH ×2 (18:10→21:10)
[2018-04-20] MEDS: Pantoprazole Inj 40 MG Vial IV.PUSH SCH (18:12)
[2018-04-20] MEDS: Sod Chloride 0.9% Inj 1,000 ML IV.CONT SCH (19:13)
[2018-04-20] MEDS ORDERED: Pharmacy Ordered Lab Info OTHER SCH (20:45)
[2018-04-21] MEDS: Oral Hygiene Kit OROPHARYNG SCH ×3 (04:31→16:55)
[2018-04-21 05:11] VITALS: O2SAT 95
[2018-04-21] MEDS: Sod Chloride 0.9% Inj 1,000 ML IV.CONT SCH (05:17)
[2018-04-21] MEDS ORDERED: Vancomycin Inj 1,000 MG in Sodium Chlor 0.9% Inj 250 ML IV.SIG SCH (06:00)
[2018-04-21] MEDS: Piperacil/Tazo 4.5 GM Premix 4.5 GM/100 ML BAG IV.SIG SCH ×2 (06:44→13:22)
[2018-04-21] MEDS: Senna/Docusate Sodium 8.6/50 MG Tablet PO SCH (09:18)
[2018-04-21] MEDS: Docusate Sodium 100 MG Capsule PO SCH (09:18)
[2018-04-21] MEDS: clonazePAM 1 MG Tablet PO SCH (09:18)
[2018-04-21] MEDS: Levofloxacin 500 mg Premix Inj 500 MG/100 ML PIGGYBACK IV.SIG SCH (11:24)
[2018-04-21] MEDS: Pantoprazole Inj 40 MG Vial IV.PUSH SCH (13:22)
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
--- NOTE | 2018-04-21 15:32 | ECHRPT ---
Indication: CONCLUSIONS Normal left ventricular size. Wall thickness is normal. The left ventricular systolic function is normal with an estimated ejection fraction in the range of 55-60%. Aortic valve sclerosis is present. Trace aortic valve regurgitation. The estimated pulmonary arterial pressure is 38mmHg. There is trace tricuspid valve regurgitation. BP: / HR: Rhythm: MEASUREMENTS (Male / Female) Normal Values Technical Quality: 2D ECHO LV Diastolic Diameter PLAX 3.8 cm 4.2 - 5.9 / 3.9 - 5.3 cm LV Systolic Diameter PLAX 2.5 cm IVS Diastolic Thickness 1.0 cm 0.6 - 1.0 / 0.6 - 0.9 cm LVPW Diastolic Thickness 1.0 cm 0.6 - 1.0 / 0.6 - 0.9 cm LV Relative Wall Thickness 0.5 RV Internal Dim ED PLAX 2.7 cm LVOT Diameter 1.8 cm Aortic Root Diameter 3.3 cm LA Systolic Diameter LX 2.9 cm 3.0 - 4.0 / 2.7 - 3.8 cm LV Ejection Fraction MOD 4C 54.0 % LV Ejection Fraction 4C AL 57.1 % M-MODE Aortic Root Diameter MM 2.5 cm LA Systolic Diameter MM 3.3 cm LA Ao Ratio MM 1.3 AV Cusp Separation MM 1.8 cm DOPPLER AV Peak Velocity 224.8 cm/s AV Peak Gradient 20.2 mmHg AV Mean Gradient 10.3 mmHg AV Velocity Time Integral 41.7 cm LVOT Peak Velocity 127.0 cm/s LVOT Peak Gradient 6.5 mmHg LVOT Velocity Time Integral 21.4 cm AV Area Cont Eq vti 1.3 cm AV Area Cont Eq pk 1.4 cm Mitral E Point Velocity 53.8 cm/s Mitral A Point Velocity 92.3 cm/s Mitral E to A Ratio 0.6 LV E' Lateral Velocity 6.7 cm/s Mitral E to LV E' Lateral Ratio 8.0 LV E' Septal Velocity 7.6 cm/s Mitral E to LV E' Septal Ratio 7.0 TV Peak Velocity 251.0 cm/s TR Peak Velocity 265.0 cm/s TR Peak Gradient 28.1 mmHg Right Atrial Pressure 10.0 mmHg Pulmonary Artery Systolic Pressu 38.1 mmHg Right Ventricular Systolic Press 38.1 mmHg PV Peak Velocity 148.0 cm/s PV Peak Gradient 8.8 mmHg FINDINGS LEFT VENTRICLE Normal left ventricular size. Wall thickness is normal. The left ventricular systolic function is normal with an estimated ejection fraction in the range of 55-60%. RIGHT VENTRICLE Normal right ventricular size and systolic function. LEFT ATRIUM The left atrial size is normal. RIGHT ATRIUM The right atrial size is normal. ATRIAL SEPTUM Normal atrial septal thickness without atrial level shunting by limited color doppler interrogation. AORTA The aortic root and proximal ascending aorta are normal in size on limited imaging. MITRAL VALVE Structurally normal mitral valve. No mitral valve stenosis or regurgitation. AORTIC VALVE Aortic valve sclerosis is present. Trace aortic valve regurgitation. TRICUSPID VALVE The estimated pulmonary arterial pressure is 38mmHg. There is trace tricuspid valve regurgitation. PULMONARY VALVE No pulmonary valve regurgitation or stenosis. VESSELS The inferior vena cava is normal in size. PERICARDIUM No pericardial effusion. Jaya Pichardo MD (Electronically Signed) Final Date:20 April 2018 17:10
[2018-04-21] MEDS ORDERED: Enoxaparin Inj 30 MG/0.3 ML Syringe SQ SCH (16:00)
[2018-04-21] MEDS ORDERED: Chlorhexidine Gluconate 0.12% Liq 15 ML UDC OROPHARYNG SCH (16:00)
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
[2018-04-21] MEDS ORDERED: Pharmacy Ordered Lab Info OTHER ONE (17:45)
[2018-04-21 18:37] VITALS: BP 124/81; PULSE 95; RESP 24; TEMP 100.4
== END 2018-04-21 18:41 ==
LOC: NEPI 23:55 → EDBD 04-12 00:03 → N03 04-12 00:31 → N05 04-19 17:26
PROVIDERS: ADMIT Surgery; ATTEND Surgery

== ENCOUNTER 2018-04-21 16:06 | Inpatient (IN) ==
[2018-04-21] MEDS ORDERED: Aluminum/Magnesium/Simethacone Susp 30 ML UDC PO PRN (19:41)
[2018-04-21] MEDS ORDERED: Melatonin 5 MG Tablet PO PRN (19:41)
[2018-04-21] MEDS ORDERED: Acetaminophen 325 MG Tablet PO PRN (19:41)
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
[2018-04-22] MEDS ORDERED: Acetaminophen/Codeine 300/30 MG Tablet PO PRN (08:29)
[2018-04-22 08:50] LABS: Baso % (Auto) 0.1 % (0.0-2.0); Eos # (Auto) 0.4 th/mm3 (0.0-0.4); Eos % (Auto) 1.4 % (0.0-4.0); Hematocrit 33.1 % (39.0-51.0); Hemoglobin 10.4 gm/dL (13.0-17.0); Lymph # (Auto) 1.3 th/mm3 (1.0-4.8); Lymph % (Auto) 4.8 % (9.0-44.0); Mean Corpuscular HGB Conc 31.4 % (32.0-36.0); Mean Corpuscular Hemoglobin 24.5 pg (27.0-34.0); Mean Corpuscular Volume 77.8 fL (80.0-100.0); Mean Platelet Volume 8.6 fL (7.0-11.0); Mono # (Auto) 1.8 th/mm3 (0.0-0.9); Mono % (Auto) 6.7 % (0.0-8.0); Neut # (Auto) 23.8 th/mm3 (1.8-7.7); Platelet Count 653 th/mm3 (150-450); Red Blood Count 4.26 mil/mm3 (4.50-5.90); Red Cell Distribution Width 16.4 % (11.6-17.2); White Blood Count 27.3 th/mm3 (4.0-11.0)
[2018-04-22 08:53] LABS: Anion Gap 9 meq/L (5-15); Blood Urea Nitrogen 25 mg/dL (7-18); Calcium 7.8 mg/dL (8.5-10.1); Carbon Dioxide 21.8 meq/L (21.0-32.0); Chloride 117 meq/L (98-107); Cholesterol 131 mg/dL (120-200); Glomerular Filtration Rate Greater Than 89 mL/min (>89); Glucose,Random 98 mg/dL (74-106); Potassium 3.7 meq/L (3.5-5.1); Sodium 148 meq/L (136-145); Triglycerides 126 mg/dL (42-150)
[2018-04-22 09:03] LABS: Chol/HDL Ratio 7.61 Ratio; HDL Cholesterol 17.2 mg/dL (40.0-60.0); LDL Cholesterol,Calculated 89 mg/dL (0-99)
[2018-04-22] MEDS ORDERED: Bisacodyl 10 MG Supp RECTAL PRN (10:12)
[2018-04-22] MEDS ORDERED: KCL 10 mEq/D5W/NaCl 0.45% Inj 1,000 ML IV.CONT SCH (10:30)
[2018-04-22] MEDS ORDERED: Levofloxacin 500 mg Premix Inj 500 MG/100 ML PIGGYBACK IV.SIG SCH (13:00)
[2018-04-22 13:40] LABS: Bilirubin,Urine Negative (Negative); Clarity,Urine Hazy (Clear); Color,Urine Yellow (Yellw/Straw); Glucose,Urine (UA) Negative (Negative); Hyaline Casts,Urine 1 /lpf (0-3); Leukocyte Esterase,Urine Negative (Negative); Mucus,Urine Few /lpf (Occasional); Nitrite,Urine Negative (Negative); Specific Gravity,Urine 1.021 (1.002-1.035)
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
[2018-04-22 14:01] LABS: Hemoglobin A1c 5.6 % (4.3-6.0)
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
--- NOTE | 2018-04-22 15:47 | XR ---
EXAM DATE: 04/22/2018 3:19 PM EDT AGE/SEX: 82 years / Male INDICATIONS: . Pneumonia CLINICAL DATA: This is the patient's subsequent encounter. Patient reports that signs and symptoms h ave been present for 4 - 6 days and indicates a pain score of Nonresponsive. MEDICAL/SURGICAL HISTORY: . Non-responsive. . Craniotomy. Kyphoplasty COMPARISON: [facility] [place] CHEST 1V SINGLE AP, 04/19/2018. . FINDINGS: AP and lateral views of the chest demonstrate mild improvement in the infiltrate within the right laura g base. Left lower lobe infiltrate remains. Chronic interstitial changes are noted. No effusions. Hea rt is normal in size. Prior cement augmentation at the thoracolumbar junction. CONCLUSION: Improvement in the right lower lobe infiltrate. Persistence of the left lower lobe infiltrate. Electronically signed by: Petey Lopez MD 04/22/2018 3:45 PM EDT
[2018-04-22 17:12] VITALS: RESP 22
[2018-04-22] MEDS ORDERED: Morphine Sulfate Inj 2 MG/ML Vial IV.PUSH PRN (18:07)
[2018-04-22 19:44] LABS: INR 1.3 Ratio; Prothrombin Time 13.6 sec (9.8-11.6)
[2018-04-22] MEDS ORDERED: HYDROmorphone PF Inj 0.5 MG/0.5 ML Syringe IV.PUSH ONE (20:38)
[2018-04-22] MEDS ORDERED: Heparin - SQ 10,000 UNITS/ML Vial SQ SCH (21:00)
[2018-04-22 21:01] VITALS: BP 118/64; PULSE 107; TEMP 98; O2SAT 93
[2018-04-22] MEDS ORDERED: HYDROmorphone PF Inj 2 MG/ML Vial IV.PUSH ONE (21:15)
== END 2018-04-22 14:04 | disposition short-term general hospital (02) ==
LOC: H4EA 19:24 → N07 04-22 14:03 → H4EA 04-22 14:04
PROVIDERS: ADMIT Psychiatry & Neurology Psychiatry; ATTEND Psychiatry & Neurology Psychiatry

== ENCOUNTER 2018-04-22 10:00 | Inpatient (IN) | END 2018-04-22 23:30 | disposition EXP | LOC: N07 14:05 | PROVIDERS: ADMIT Family Medicine; ATTEND Family Medicine ==